=== PATIENT | male | born 1975 | race Caucasian/White ===

== ENCOUNTER 2024-07-09 05:36 | Inpatient (IN) | payer MEDICARE, MEDICAID ==
[~2024-07-09] VITALS: Ht 175.3 cm; Wt 75.9 kg
[~2024-07-09 05:36] MED LIST: BUPR-94 PO; LITH600C PO; QUET-1 PO
[2024-07-09] MEDS ORDERED: magnesium hydroxide 30ml (MOM) UD suspension PO PRN (11:55)
[2024-07-09] MEDS ORDERED: acetaminophen 325mg tablet PO PRN (11:55)
[2024-07-09] MEDS ORDERED: chlorproMAZINE 25mg tablet PO PRN (11:55)
[2024-07-09] MEDS ORDERED: mag hydrox/Alum hydrox/simeth 30ml oral suspension PO PRN (11:55)
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
[2024-07-09 17:52] VITALS: RESP 14; O2SAT 99
[2024-07-09 19:00] VITALS: RESP 16; O2SAT 99
[2024-07-09 20:00] VITALS: BP 159/95; PULSE 80; RESP 16; TEMP 98.1; O2SAT 99
[2024-07-09] MEDS ORDERED: lithium carbonate 150mg capsule PO SCH (21:00)
[2024-07-09] MEDS: lithium carbonate 150mg capsule PO SCH (21:50)
[2024-07-09] MEDS: guaiFENesin ER 600mg tablet PO SCH (23:01)
[2024-07-10 07:00] VITALS: BP 135/84; PULSE 58; RESP 16; TEMP 97.6; O2SAT 97
[2024-07-10 07:45] VITALS: RESP 16; O2SAT 97
[2024-07-10] MEDS: BUPROPION HCL 150MG XL 24 HR 150 MG TAB PO SCH (07:56)
[2024-07-10] MEDS: QUETIAPINE 50 MG TAB.SR.24H PO SCH (07:56)
[2024-07-10 08:08] LABS: CHOL/HDL RATIO 2.3 (0.00-4.99); CHOLESTEROL 132 MG/DL (0-200); HDL CHOLESTEROL 57 MG/DL (35-60); LDL CHOLESTEROL 65 MG/DL (50-100); THYROID STIMULATING HORMONE 0.86 ulU/ml (0.34-4.50); TRIGLYCERIDES 70 MG/DL (20-135)
[2024-07-10 09:46] LABS: HEMOGLOBIN A1C 5.5 % (4.5-6.2)
[2024-07-10 10:35] LABS: BASOPHILS % (AUTO) 0.6 % (0-1); EOSINOPHILS # (AUTO) 0.3 X10'3 (0-0.9); HEMATOCRIT 44.8 % (42.0-52.0); HEMOGLOBIN 14.7 g/dl (14.0-17.9); LYMPHOCYTES # (AUTO) 1.4 X10'3 (1.1-4.8); LYMPHOCYTES % (AUTO) 18.4 % (21-51); MEAN CORPUSCULAR HEMOGLOBIN 29.8 PG (27.0-31.0); MEAN CORPUSCULAR HGB CONC 32.9 g/dL (33.0-36.5); MEAN CORPUSCULAR VOLUME 90.6 FL (78-98); MEAN PLATELET VOLUME 7.8 FL (7.4-10.4); MONOCYTES # (AUTO) 0.4 X10'3 (0-0.9); MONOCYTES % (AUTO) 4.9 % (2-12); NEUTROPHILS # (AUTO) 5.4 X10'3 (1.8-7.7); NEUTROPHILS % (AUTO) 72.1 % (42-75); PLATELET COUNT 208 X10'3 (140-440); RED BLOOD COUNT 4.95 X10'6 (4.70-6.10); RED CELL DISTRIBUTION WIDTH 13.2 % (11.5-14.5); WHITE BLOOD COUNT 7.5 X10'3 (4.5-11.0)
[2024-07-10 10:50] LABS: ALANINE AMINOTRANSFERASE 23 U/L (12-78); ALBUMIN 3.3 G/DL (3.4-5.0); ALKALINE PHOSPHATASE 75 IU/L (46-116); ANION GAP 7 (8-16); ASPARTATE AMINO TRANSFERASE 27 U/L (10-37); BILIRUBIN,TOTAL 0.3 MG/DL (0.1-1.0); BLOOD UREA NITROGEN 14 MG/DL (7-18); BUN/CREATININE RATIO 15.2 (10.0-20.0); CALCIUM 8.8 MG/DL (8.5-10.1); CHLORIDE 106 MMOL/L (99-107); CREATININE 0.92 MG/DL (0.60-1.10); GLUCOSE 72 MG/DL (70-104); POTASSIUM 4.5 MMOL/L (3.5-5.1); SODIUM 139 MMOL/L (135-145); TOTAL CARBON DIOXIDE 26.5 MMOL/L (24-32); TOTAL PROTEIN 6.7 G/DL (6.4-8.2); eCRCL 95 ML/MIN; eGFR 87 ML/MIN
--- NOTE | 2024-07-10 14:08 | PROGRESS NOTE ---
Progress Note Dictate Providers to CC ~ Central Line/PICC still needed: N\\A Antibiotic Ordered?: No MRSA Education MRSA Education Provided to pt: No Objective Vitals Vital Signs Date Time Temp Pulse Resp B/P (MAP) Pulse Ox O2 Delivery O2 Flow Rate FiO2 07/10/24 07:45 16 97 Room Air 07/10/24 07:00 97.6 58 135/84 (101) Lab Results: 07/10/24 1000 07/10/24 1000 Problem\\Assessment\\Plan Problems/Diagnosis: (1) Schizophrenia (2) Major depressive disorder, recurrent, moderate (3) Traumatic brain injury Psychiatrist's Progress Note Date of Service: July 11, 2024 Notes CHART REVIEW ASSESSMENT The patient was interviewed in observation room. The patient was actively resting in bed. The patient endorses "dizzy." RN was notified to assess patient and obtain VS. The patient was assisted back to bed. Interview was unable to be completed due to patient felling dizzy. The patient is stable no acute distress noted. The patient is depressed, suicidal, and disengaged during session. Will continue daily assessment and adjusting treatment as needed. Closely monitor behavior and response to medication during hospitalization. Discussed treatment plan with patient. ASE/risks and benefits of chosen treatment. He verbalized understanding and consented to treatment. Results Of any Diagn. Testing REVIEW OF LABS LITHIUM LEVEL 0.3 WBC 7.6 RBC 4.50 HEMOGLOBIN 13.7 HEMATOCRIT 39.1 PLATELETS 243 SODIUM 140 POTASSIUM 3.6 CHLORIDE 106 ANION GAP 11 BUN 14 GLUCOSE 100 CREATININE 1.20 CALCIUM 8.8 ALBUMIN 4.1 ALT 22 AST 38 TOX SCREEN POSITIVE FOR AMPHETAMINES AND THC URINALYSIS NEGATIVE Appearnace: Other (DISHEVELED.GRAYING HAIR BALD IN THE FRONT/MIDDLE. WERAING GREEN SCRUBS. AVERAGE HEIGHT AND WEIGHT MALE.) Speech: Impoverished Insight: Poor Judgment: Poor Treatment WELLBUTRIN XL 150 MG P.O. DAILY LITHIUM 600 MG P.O. Q.H.S. SEROQUEL 200 MG P.O. Q.H.S. Monitoring by Staff, Milieu, Group, and Individual counseling as needed -- According to the [place] Suicide Assessment the above named patient is on Q15 MINUTE CHECKS. [id number]-The patient does not have a good safety plan for discharge at this time. We are still titrating medications to an effective dose while maintaining a therapeutic environment to prevent decompensation and readmission. Total time spent 90 minutes on REVIEW OF Clinical notes [X ] RN notes [X] PCT documentation [X] SW notes Labs [ X] Medications [X] Care trends/care activity [X] Vitals [X] DISCUSSION WITH tailor helper [X] Staff SW Treatment Team [X] Discharge UNSURE AT THIS TIME. DISCHARGE HOME ONCE STABLE. CODING VISIT-PSYCHIATRY Date of Service: July 11, 2024 Billing Provider: NASIMA AGOSTO APRN Psych Common Visit Codes: [id number] INP/OBS CARE(Mod) NASIMA AGOSTO APRN July 10, 2024 14:08
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
[2024-07-10 20:00] VITALS: BP_SYST 121; BP_SYST 122; BP_SYST 140; BP_SYST 143; BP_DIAS 65; BP_DIAS 70; BP_DIAS 79; BP_DIAS 83; PULSE 68; PULSE 75; PULSE 89; PULSE 97; RESP 19; TEMP 97.7; O2SAT 98
[2024-07-11 07:00] VITALS: BP 128/86; PULSE 75; RESP 16; TEMP 97.5; O2SAT 97
[2024-07-11 07:30] VITALS: RESP 16; O2SAT 97
[2024-07-11] MEDS: loperamide 2mg capsule PO PRN (07:57)
[2024-07-11 09:00] VITALS: BP_SYST 110; BP_SYST 128; BP_DIAS 80; BP_DIAS 85; BP_DIAS 93; PULSE 102; PULSE 69; PULSE 98
--- NOTE | 2024-07-11 11:04 | RADIOLOGY REPORT ---
EXAM: DI SHOULDER, COMPLETE (MIN 2 VWS) CLINICAL INDICATION: Hyper mobile right shoulder with discomfort during exam TECHNIQUE: DI SHOULDER, COMPLETE (MIN 2 VWS) Comparison: None FINDINGS/IMPRESSION: There is no evidence of acute fracture or dislocation. The visualized joint space is well maintained. The alignment is anatomical. There is no radiopaque foreign body.
[2024-07-11 11:16] VITALS: BP 128/86; PULSE 75; RESP 16; TEMP 97.5; O2SAT 97
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
[2024-07-11] MEDS: hydrOXYzine 25 MG tablet PO PRN (17:45)
[2024-07-11 19:00] VITALS: RESP 16; O2SAT 94
[2024-07-11 20:00] VITALS: BP 120/82; PULSE 79; RESP 16; TEMP 98.1; O2SAT 94
[2024-07-11] MEDS: QUETIAPINE 50 MG TAB.SR.24H PO SCH (21:04)
[2024-07-12 07:30] VITALS: BP 112/80; PULSE 77; RESP 15; TEMP 97.6; O2SAT 95
[2024-07-12 09:56] VITALS: RESP 15; O2SAT 16
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
[2024-07-12] MEDS: ondansetron 4mg rapidly disintigrating tab PO ONE (13:17)
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
[2024-07-12 19:00] VITALS: RESP 18; O2SAT 97
[2024-07-12 20:00] VITALS: BP 124/81; PULSE 90; RESP 18; TEMP 98.1; O2SAT 97
[2024-07-12] MEDS: traZODone 50mg tablet PO PRN (20:28)
[2024-07-13 08:00] VITALS: BP 104/75; PULSE 92; RESP 18; TEMP 97.7; O2SAT 98
[2024-07-13] MEDS: BUPROPION HCL 150MG XL 24 HR 150 MG TAB PO SCH (08:09)
[2024-07-13 10:23] VITALS: RESP 16; O2SAT 97
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
[2024-07-13] MEDS ORDERED: QUEtiapine 25mg tablet PO PRN (15:05)
[2024-07-13 19:00] VITALS: RESP 18; O2SAT 100
[2024-07-13 20:00] VITALS: BP 112/78; PULSE 89; RESP 18; TEMP 98.3; O2SAT 100
[2024-07-13] MEDS: QUETIAPINE 150 MG TAB.SR.24H PO SCH (20:12)
[2024-07-13] MEDS: QUETIAPINE 50 MG TAB.SR.24H PO SCH (20:12)
[2024-07-13] MEDS: oxcarbazepine 150mg tablet PO SCH (20:13)
[2024-07-14 07:00] VITALS: RESP 16; O2SAT 95
[2024-07-14 08:00] VITALS: BP 112/67; PULSE 78; RESP 14; TEMP 98.6; O2SAT 95
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
[2024-07-14 20:00] VITALS: BP 108/78; PULSE 71; RESP 12; TEMP 98.3; O2SAT 96
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
[2024-07-14 21:39] VITALS: RESP 12; O2SAT 96
[2024-07-15] MEDS: diphenhydrAMINE 25mg capsule PO PRN (02:48)
[2024-07-15 07:00] VITALS: RESP 16; O2SAT 97
[2024-07-15 09:08] VITALS: BP 113/76; PULSE 75; RESP 16; TEMP 98; O2SAT 97
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
[2024-07-15 18:33] VITALS: RESP 16; O2SAT 98
[2024-07-15 19:33] VITALS: BP 117/78; PULSE 84; RESP 16; TEMP 98.7; O2SAT 97
[2024-07-16 07:00] VITALS: RESP 18; O2SAT 98
[2024-07-16 08:42] VITALS: BP 98/59; PULSE 68; RESP 18; TEMP 97.7; O2SAT 98
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
[2024-07-16 19:00] VITALS: RESP 16; O2SAT 97
[2024-07-16 20:00] VITALS: BP 118/87; PULSE 82; RESP 16; TEMP 97.3; O2SAT 97
[2024-07-17] MEDS: acetaminophen 325mg tablet PO PRN (03:15)
[2024-07-17 07:00] VITALS: BP 106/77; PULSE 66; RESP 16; TEMP 97.6; O2SAT 99
[2024-07-17 10:30] VITALS: RESP 16
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
[2024-07-17] MEDS ORDERED: LITH600C PO (11:17)
[2024-07-17] MEDS ORDERED: BUPR-94 PO (11:17)
[2024-07-17] MEDS ORDERED: OXCA150T14 PO (11:17)
[2024-07-17] MEDS ORDERED: QUET150T16 PO (11:21)
[2024-07-17] MEDS ORDERED: QUETIAPINE 150 MG TAB.SR.24H PO SCH (21:00)
== END 2024-07-17 12:30 | disposition home or self-care (01) | DRG 885 ==
LOC: UNDOADMIN 11:06 → ADULT MH 11:06
PROVIDERS: ADMIT Psychiatry & Neurology Psychiatry; ATTEND Psychiatry & Neurology Psychiatry
PROC: GZHZZZZ Group Psychotherapy (ICD-10-PCS; principal; 2024-07-09)
PROC: GZ51ZZZ Individual Psychotherapy, Behavioral (ICD-10-PCS; 2024-07-09)
DX: F25.9 Schizoaffective disorder, unspecified (principal); F33.1 Major depressive disorder, recurrent, moderate; R45.851 Suicidal ideations; F15.10 Other stimulant abuse, uncomplicated; Z88.8 Allergy status to other drugs, medicaments and biological substances; Z79.899 Other long term (current) drug therapy; Z88.5 Allergy status to narcotic agent; Z87.891 Personal history of nicotine dependence
CPT/HCPCS: 36415; 73030; 80053; 80061; 80178; 83036; 84443; 85025; 87081; 99285; Q0163; Q0177